=== PATIENT | male | born 1975 | race Caucasian/White ===

== ENCOUNTER 2022-03-09 12:35 | Emergency (ER) | payer BC ==
[2022-03-09] MEDS ORDERED: Lidocaine 1% 5 ML VIAL INJECT ONE (13:02)
[2022-03-09] MEDS ORDERED: Bacitracin Oint 1 GM U/D Packet TOP ONE (13:38)
== END 2022-03-09 14:11 | disposition home or self-care (01) ==
LOC: JP.ED 12:35
DX: S00.35XA Superficial foreign body of nose, initial encounter (principal); Z79.899 Other long term (current) drug therapy; W45.8XXA Other foreign body or object entering through skin, initial encounter
CPT/HCPCS: 99281; 99283